=== PATIENT | female | born 1980 | race African-American/Black ===

== ENCOUNTER 2018-08-22 00:06 | Emergency (ER) | payer SELFPAY ==
--- NOTE | 2018-08-22 00:28 | EDM.PDOC ---
ED HPI GENERAL MEDICAL PROBLEM - General Stated Complaint: SUICIDAL Time Seen by Provider: 08/22/18 00:08 - History of Present Illness INITIAL COMMENTS - FREE TEXT/NARRATIVE: HISTORY AND PHYSICAL: History of present illness: Patient is a 38-year-old Latin female history bipolar disorders but off medications presents here via paramedics after she told the person at the train station that she is depressed and wanted to kill herself she states she did take a small but unknown number of Aleve she denies any other ingestion or self- harm. She does remain depressed and suicidal and is agreeable to psychiatric transfer for inpatient evaluation and treatment. She has no other complaints Review of systems: As per history of present illness and below otherwise all systems reviewed and negative. Past medical history: As per history of present illness and as reviewed below otherwise noncontributory. Surgical history: As per history of present illness and as reviewed below otherwise noncontributory. Social history: No reported history of drug or alcohol abuse. Family history: As per history of present illness and as reviewed below otherwise noncontributory. Physical exam: HEENT: Atraumatic, normocephalic, pupils reactive, negative for conjunctival pallor or scleral icterus, mucous membranes moist, throat clear, neck supple, nontender, trachea midline. Lungs: Clear to auscultation, breath sounds equal bilaterally, chest nontender. Heart: S1S2, regular, negative for clicks, rubs, or JVD. Abdomen: Soft, nondistended, nontender. Negative for masses or hepatosplenomegaly. Negative for costovertebral tenderness. Pelvis: Stable nontender. Genitourinary: Deferred. Rectal: Deferred. Extremities: Atraumatic, negative for cords or calf pain. Neurovascular unremarkable. Neuro: Awake, alert, oriented. Cranial nerves II through XII unremarkable. Cerebellum unremarkable. Motor and sensory unremarkable throughout. Exam nonfocal. Diagnostics: Psychiatric panel Therapeutics: None Impression: #1 depressive episode with suicidal ideation #2 nonlethal ingestion #3 history of bipolar disorder with medical noncompliance Definitive disposition and diagnosis as appropriate pending reevaluation and review of above. ED ROS GENERAL - Review of Systems Review Of Systems: ROS reveals no pertinent complaints other than HPI. ED EXAM, GENERAL - Physical Exam Exam: See Below (See dictation) Course - Orders/Labs/Meds Orders: Active Orders 24 hr Category Date Time Status EKG Documentation Completion [RC] STAT Care 08/22/18 00:09 Active ACETAMINOPHEN [CHEM] Stat Lab 08/22/18 00:09 Ordered CBC WITH AUTO DIFF [HEME] Stat Lab 08/22/18 00:09 Ordered COMPREHENSIVE METABOLIC PN,CMP [CHEM] Stat Lab 08/22/18 00:09 Ordered DRUG SCREEN, URINE [URCHEM] Stat Lab 08/22/18 00:09 Ordered ETHANOL BLOOD MEDICAL [CHEM] Stat Lab 08/22/18 00:09 Ordered MAGNESIUM [CHEM] Stat Lab 08/22/18 00:09 Ordered SALICYLATE [CHEM] Stat Lab 08/22/18 00:09 Ordered TSH [CHEM] Stat Lab 08/22/18 00:09 Ordered UA W/MICROSCOPIC [URIN] Stat Lab 08/22/18 00:09 Ordered Departure - Departure Time of Disposition: 00:27 Disposition: DC/Tfer to Psych Hosp/Unit [facility] Condition: Good Clinical Impression: Depression, History of bipolar disorder - Discharge Information - My Orders Last 24 Hours: My Active Orders 08/22/18 00:09 EKG Documentation Completion [RC] STAT ACETAMINOPHEN [CHEM] Stat CBC WITH AUTO DIFF [HEME] Stat COMPREHENSIVE METABOLIC PN,CMP [CHEM] Stat DRUG SCREEN, URINE [URCHEM] Stat ETHANOL BLOOD MEDICAL [CHEM] Stat MAGNESIUM [CHEM] Stat SALICYLATE [CHEM] Stat TSH [CHEM] Stat UA W/MICROSCOPIC [URIN] Stat - Assessment/Plan Last 24 Hours: My Active Orders 08/22/18 00:09 EKG Documentation Completion [RC] STAT ACETAMINOPHEN [CHEM] Stat CBC WITH AUTO DIFF [HEME] Stat COMPREHENSIVE METABOLIC PN,CMP [CHEM] Stat DRUG SCREEN, URINE [URCHEM] Stat ETHANOL BLOOD MEDICAL [CHEM] Stat MAGNESIUM [CHEM] Stat SALICYLATE [CHEM] Stat TSH [CHEM] Stat UA W/MICROSCOPIC [URIN] Stat
[2018-08-22 01:17] LABS: CHLORIDE,CL 102 mmol/L (98-107); SODIUM,NA 136 mmol/L (136-145)
== END 2018-08-22 01:15 ==
LOC: MW.ED 00:06
DX: F32.9 Major depressive disorder, single episode, unspecified (principal)
CPT/HCPCS: 36415; 80053; 80305; 81001; 81025; 83735; 84443; 85025; 93005; 99285; G0480